=== PATIENT | male | born 1965 ===

== ENCOUNTER → 2018-04-19 21:20 | Outpatient (REF) | payer OTHER, SELFPAY ==
[2018-04-19 22:51] LABS: Add Manual Diff / Slide Review NO; Basophils Absolute Auto 100 /uL (0-100); Basophils Percent Auto 0.9 % (0-2); Eosinophils Absolute Auto 300 /uL (0-450); Eosinophils Percent Auto 4.4 % (2-4); Hemoglobin 16.3 g/dL (13.5-17.5); Lymphocytes Absolute Auto 1700 /uL (1100-4500); Lymphocytes Percent Auto 28.6 % (25-40); Mean Corpuscular HGB Conc 33.2 % (30-36); Mean Corpuscular Hemoglobin 30.8 PG (26-34); Mean Corpuscular Volume 92.9 fL (80-100); Monocytes Absolute Auto 500 /uL (0-900); Monocytes Percent Auto 8.2 % (3-14); Neutrophils Absolute Auto 3400 /uL (1500-7000); Neutrophils Percent Auto 57.9 % (50-75); Platelet Count 238 X10^3/uL (150-400); Red Blood Cell Count 5.27 X10^6/uL (4.5-5.9); Red Cell Distribution Width 12.9 % (11.6-14.8); White Blood Cell Count 5.8 X10^3/uL (4.5-11.0)
[2018-04-22 19:20] LABS: Estradiol 32 pg/mL (< 40)
[2018-04-25 13:30] LABS: Testosterone, Total 428.7
[2018-04-25 13:31] LABS: Sex Hormone Binding Globulin 48.9; Testosterone,Free 10.8
== END ==
LOC: LAB 21:20
PROVIDERS: Visit Provider Naturopath
DX: E29.1 Testicular hypofunction (principal)
CPT/HCPCS: 36415; 82670; 84153; 84154; 84270; 84402; 84403; 85025

== ENCOUNTER → 2018-07-08 21:12 | Outpatient (ROUT) | payer OTHER, SELFPAY ==
[2018-07-08 21:14] LABS: RBC Urine None Seen (0-5/HPF); WBC Urine None Seen (0-5/HPF)
[2018-07-09 00:16] LABS: Add Manual Diff / Slide Review NO; Basophils Absolute Auto 100 /uL (0-100); Basophils Percent Auto 1.1 % (0-2); Eosinophils Absolute Auto 300 /uL (0-450); Eosinophils Percent Auto 5.6 % (2-4); Hematocrit 48.7 % (41-53); Hemoglobin 16.4 g/dL (13.5-17.5); Lymphocytes Absolute Auto 1500 /uL (1100-4500); Lymphocytes Percent Auto 25.6 % (25-40); Mean Corpuscular HGB Conc 33.7 % (30-36); Mean Corpuscular Hemoglobin 31.2 PG (26-34); Mean Corpuscular Volume 92.4 fL (80-100); Monocytes Absolute Auto 500 /uL (0-900); Monocytes Percent Auto 7.9 % (3-14); Neutrophils Absolute Auto 3500 /uL (1500-7000); Neutrophils Percent Auto 59.8 % (50-75); Platelet Count 222 X10^3/uL (150-400); Red Blood Cell Count 5.27 X10^6/uL (4.5-5.9); Red Cell Distribution Width 13.3 % (11.6-14.8); White Blood Cell Count 5.9 X10^3/uL (4.5-11.0)
[2018-07-09 01:00] LABS: Alanine Aminotransferase 43 IU/L (21-72); Albumin 4.3 g/dL (3.5-5.0); Albumin Globulin Ratio 1.5 (1.0-2.8); Alkaline Phosphatase 53 U/L (38-126); Aspartate Aminotransferase 37 IU/L (17-59); BUN Creatinine Ratio 17.8 (6-22); Bilirubin Total 0.6 mg/dL (0.2-1.3); Blood Urea Nitrogen 16 mg/dL (9-20); Calcium 9.4 mg/dL (8.4-10.2); Carbon Dioxide 26 mmol/L (22-32); Chloride 104 mmol/L (98-107); Cholesterol 213 mg/dL (140-199); Estimated Glomerular Filt Rate > 60.0 mL/min (>60); Globulin 2.8 g/dL (1.7-4.1); Glucose 96 mg/dL (70-100); HDL Cholesterol 56 mg/dL (40-60); HEMOLYSIS < 15 (0-50); LDL Cholesterol Calculated 141 mg/dL (<100); Potassium 4.7 mmol/L (3.4-5.1); Sodium 139 mmol/L (137-145); Total Protein 7.1 g/dL (6.3-8.2); Triglycerides 82 mg/dL (35-150)
[2018-07-09 01:27] LABS: Ferritin 66.1 ng/mL (17.9-464)
[2018-07-09 01:30] LABS: Appearance Urine UA SL CLOUDY; Bilirubin Urine UA NEGATIVE (NEGATIVE); Color Urine UA YELLOW; Glucose Urine UA NEGATIVE (Negative); Ketones Urine UA NEGATIVE (NEGATIVE); Leukocyte Esterase Urine UA NEGATIVE (NEGATIVE); Nitrite Urine UA NEGATIVE (Negative); Occult Blood Urine UA NEGATIVE (Negative); Protein Urine UA NEGATIVE (Negative); Specific Gravity Urine UA 1.025 (1.000-1.035); Urobilinogen Urine UA 0.2 E.U./dL (0.2); pH Urine UA 8.5 (4.5-8.0)
[2018-07-09 01:55] LABS: Amorphous Sediment Urine 3+; Squamous Epithelial Cell Urine 0-1 /HPF (0-5/HPF)
[2018-07-09 01:56] LABS: Bacteria Urine Occasional (0-1); Culture Indicated Urine Cult Not Indicated
[2018-07-09 02:18] LABS: TSH w/ Reflex to FT4 3.49 uIU/mL (0.47-4.68)
[2018-07-12 14:31] LABS: PSA Total 0.57 ng/mL (< 4.01)
== END ==
PROVIDERS: Visit Provider Naturopath
DX: Z00.00 Encounter for general adult medical examination without abnormal findings (principal); Z13.89 Encounter for screening for other disorder; F41.1 Generalized anxiety disorder; E78.5 Hyperlipidemia, unspecified; M25.562 Pain in left knee; Z80.42 Family history of malignant neoplasm of prostate
CPT/HCPCS: 36415; 80053; 80061; 81001; 82728; 84153; 84154; 84443; 85025